=== PATIENT | female | born 1965 | race Caucasian/White ===

== ENCOUNTER → 2016-07-03 | Outpatient (CLI) | payer BC ==
[~2016-07-03] MED LIST: ALEVE OTC
[2016-07-03 14:37] LABS: HEMATOCRIT 39.7 % (35.0-45.0); HEMOGLOBIN 13.5 gm/dL (12.0-16.0); MEAN CELL VOLUME 85.2 FL (83-96); MEAN PLATELET VOLUME 7.8 FL (6.5-11.5); RED BLOOD COUNT 4.65 X10e (3.90-5.30); RED CELL DISTRIBUTION WIDTH 14.7 % (11.0-15.5); WHITE BLOOD COUNT 5.6 X10e3 (4.0-10.5)
[2016-07-03 18:18] LABS: BUN/CREATININE RATIO 16.25; CALCIUM SERUM 9.3 mg/dL (8.4-10.2); CREATININE SERUM 0.8 mg/dL (0.6-1.4); POTASSIUM 3.7 mmol/L (3.5-5.1)
== END | disposition home or self-care (01) ==
LOC: SLAB 14:24
PROVIDERS: Orthopaedic Surgery Sports Medicine
DX: Z01.812 Encounter for preprocedural laboratory examination (principal); M20.21 Hallux rigidus, right foot
CPT/HCPCS: 36415; 80048; 85027

== ENCOUNTER → 2016-11-02 | Outpatient (CLI) | payer BC ==
--- NOTE | ~2016-11-02 | MY30 ---
[facility] A Service of [facility] RADIOLOGY TEXT RESULTS PATIENT: BERNIE SCHULZ LOCATION: [facility] : 65 UNIT #: [id number] AGE: [address]: JENNIFER BALBUENA APRN SEX: F ORDER DR: [id number] [place] [id number] O MR#: [id number] Acc #: [id number] NAME: BERNIE SCHULZ : 1965 SEX: F STUDY DATE/TIME: 11/02/2016 15:57 UNIT: [facility] ROOM: STUDY DESCRIPTION: MY SCREEN MELLO BILAT DIGITAL Attending Physician: Jennifer Balbuena Aprn Referring Physician: Jennifer Balbuena Aprn Ordering Physician: Jennifer Balbuena Aprn Primary Care Physician: Babak Olsen M.D. MEDICAL IMAGING REPORT This report is preliminary unless electronic signature is present. EXAM Bilateral digital screening mammogram with CAD, 11/02/2016 HISTORY Family history of breast cancer in her mother at age of 50. No personal history of breast cancer or current complaints. Benign right breast biopsy in 2004. COMPARISON Bilateral screening mammogram 01/07/2015, 09/15/2013, 03/22/2009. FINDINGS CC and MLO views were obtained of each breast utilizing digital technique and reviewed with an FDA-approved CAD device. Scattered fibroglandular densities are present bilaterally, with asymmetric fibroglandular dominance in the subareolar right breast being unchanged from prior. Fibronodular density within the upper outer left breast anterior third is likewise stable finding. No new or suspicious nodule is identified. No architectural distortion or suspicious clustered microcalcification is seen. There is no abnormal skin thickening or nipple retraction. IMPRESSION Routine bilateral screening mammogram is recommended in one year. Patients over the age of 40 are entered into a reminder system with target due date for the next mammogram. A result letter will also be sent to the patient. BIRADS: 2 Benign Finding [facility] A Service of [facility] RADIOLOGY TEXT RESULTS PATIENT: BERNIE SCHULZ LOCATION: [facility] : 65 UNIT #: [id number] AGE: [address]: JENNIFER BALBUENA APRN SEX: F ORDER DR: Dictated by... Leydi Benitez M.D. THIS IS AN ELECTRONICALLY VERIFIED REPORT Leydi Benitez M.D. at 11/03/2016 5:03 PM Fátima TD: 11/03/2016 11:10 JOB #: [id number] MEDICAL IMAGING REPORT Page 1 of 1
== END | disposition home or self-care (01) ==
LOC: SMAM 15:04
DX: Z12.31 Encounter for screening mammogram for malignant neoplasm of breast (principal); Z80.3 Family history of malignant neoplasm of breast; Z91.89 Other specified personal risk factors, not elsewhere classified; Z98.890 Other specified postprocedural states
CPT/HCPCS: G0202